=== PATIENT | male | born 1940 | race Two or more races ===

== ENCOUNTER 2016-07-10 10:19 | Observation (INO) | payer MEDICARE, MEDICAID ==
[~2016-07-10] VITALS: Ht 160 cm; Wt 84.4 kg
[~2016-07-10 10:19] MED LIST: ASPI81CH43; ATEN1TAB38; GABA300C8; HYDR7.5T; OMEP20TA; PRED5PAK8; TRAM50TA2
[2016-07-10 14:30] LABS: Basophils # (auto) 0 uL; Basophils % (auto) 0.7 % (0.0-2.0); Eosinophils # (auto) 0.2 uL; Eosinophils % (auto) 3.7 % (0.0-7.0); Hematocrit 44.7 % (41.0-53.0); Lymphocytes # (auto) 1.2 uL; Lymphocytes % (auto) 26.7 % (10.0-50.0); Mean Corpuscular Hemoglobin 30.8 pg (28.0-32.0); Mean Corpuscular Hgb Conc. 33.5 g/dL (32.0-36.0); Mean Corpuscular Volume 91.9 fL (80.0-100.0); Mean Platelet Volume 7.9 fL (7.4-10.4); Monocytes # (auto) 0.7 uL; Monocytes % (auto) 15.5 % (0.0-12.0); Neutrophils # (auto) 2.4 uL; Neutrophils % (auto) 53.4 % (37.0-80.0); Platelet Count (auto) 191 10^3/uL (140-450); Red Cell Distribution Width 16.1 % (11.6-16.0); White Blood Cell 4.5 10^3/uL (4.4-10.8)
[2016-07-10 15:18] LABS: Albumin 4.1 g/dL (3.4-5.0); Alkaline Phosphatase 104 U/L (45-117); Anion Gap 6 (5-15); Aspartate Aminotransferase 34 U/L (15-37); BUN/Creatinine Ratio 10.9; Bilirubin, Total 0.6 mg/dL (0.2-1.0); Blood Urea Nitrogen 14 mg/dL (7-18); Carbon Dioxide 32 mmol/L (21-32); Chloride 104 mmol/L (98-107); GFR African American 70 mL/min; GFR Non-African American 58 mL/min; Glucose 95 mg/dL (74-106); Magnesium 2.5 mg/dL (1.6-2.6); Potassium 4.3 mmol/L (3.5-5.1); Sodium 142 mmol/L (136-145)
[2016-07-10 15:48] LABS: Urine Bilirubin Negative (Negative); Urine Color Yellow (Yellow); Urine Glucose Normal (Normal); Urine Ketone Negative (Negative); Urine Nitrite Negative (Negative); Urine RBC 7 /hpf (0 - 3); Urine Squamous Epithelial Cell FEW /hpf (<5); Urine Urobilinogen Normal (Negative); Urine pH 6.5 (5.0-8.0)
[2016-07-10 16:06] LABS: Partial Thromboplastin Time 27.3 sec (22.64-33.71); Prothrombin Time 10.8 sec (9.37-12.3)
[2016-07-10] MEDS ORDERED: PROMETHAZINE W/CODEINE 5 ML ORAL SYRUP GT ONE (16:30)
[2016-07-10] MEDS ORDERED: cefTRIAXone 1GM/50ML D5W 50 ML IV ONE (16:30)
[2016-07-10 16:47] LABS: Urine Blood 1+ /uL (Negative)
[2016-07-10 17:34] VITALS: BP 158/80
== END 2016-07-10 17:34 | disposition home or self-care (01) | DRG 203 ==
LOC: ER 10:19 → OVERFLOW 14:14 → ER 17:34
PROVIDERS: ADMIT Family Medicine; ATTEND Family Medicine
DX: J20.9 Acute bronchitis, unspecified (principal); K21.9 Gastro-esophageal reflux disease without esophagitis; I10 Essential (primary) hypertension
CPT/HCPCS: 36415; 71010; 80053; 81001; 83735; 84484; 85025; 85610; 85730; 87040; 93005; 96365; 99285; G0378; J0696